=== PATIENT | female | born 1990 | race American Indian/Alaskan Native ===

== ENCOUNTER 2016-06-22 17:22 | Outpatient (CLI) | payer MEDICAID ==
[2016-06-22 17:48] VITALS: BP 108/55
--- NOTE | 2016-06-23 07:51 | Ultrasound Report ---
ULTRASOUND BIOPHYSICAL PROFILE: History: Nonreassuring tracing Technique: Transabdominal ultrasound with Doppler interrogation. 2 - breathing movements 2 - movements 2 - posture and tone 2 - Qualitative amniotic fluid volume 8 - TOTAL SCORE OF POSSIBLE 8 Heart Rate (bpm) 131
--- NOTE | 2016-06-23 07:52 | Ultrasound Report ---
ULTRASOUND OB LIMITED History: well being Technique: Transabdominal ultrasound with Doppler interrogation. Gestation: Single Position: Cephalic Amniotic Fluid: Normal LINDA = 21.0 cm Heart Rate: 133 BPM
== END 2016-06-22 19:36 | disposition home or self-care (01) ==
LOC: TRG 17:22
PROVIDERS: ATTEND Obstetrics & Gynecology
DX: O47.03 False labor before 37 completed weeks of gestation, third trimester (principal); Z3A.35 35 weeks gestation of pregnancy
CPT/HCPCS: 59025; 76815; 76819

== ENCOUNTER 2016-07-08 10:49 | Inpatient (IN) | payer MEDICAID ==
[2016-07-08] MEDS ORDERED: ePHEDrine SULFATE IV PRN ×2 (10:51→14:19)
[2016-07-08] MEDS ORDERED: SUBLIMAZE IV PRN (10:51)
[2016-07-08] MEDS ORDERED: MINERAL OIL PO PRN (10:51)
[2016-07-08] MEDS ORDERED: XYLOCAINE 2% INFILTRATI ONE (10:51)
[2016-07-08] MEDS ORDERED: BRETHINE SUB-Q PRN (10:51)
[2016-07-08] MEDS ORDERED: ZOFRAN IV PRN (10:51)
[2016-07-08] MEDS ORDERED: PITOCin 20 UNIT in NACL 0.9% 1000 ML 998 ML IV SCH (11:00)
[2016-07-08] MEDS ORDERED: LACTATED RINGERS 1,000 ML IV SCH (11:00)
--- NOTE | 2016-07-08 11:05 | History and Physical Report ---
History of Present Illness Date of examination: 07/08/16 (pt presents with SROM this AM; "the color is brown") Date of admission: 07/08/16 10:49 History of present illness: Past History : 6 Term Births: 4 Living Children: 4 Para: 4 Elect. Ab: 2 # 1 Delivery date: 10/2004 Delivery type: Anesthesia type: epidural Delivery location: [place] [facility] Sex: Female weight: 7-14 Comments: denies complications # 2 Delivery date: 04/2007 Weeks Gestation: term Delivery type: Anesthesia type: epidural Delivery location: [place] Sex: Male weight: 7-11 # 3 Delivery date: 05/2008 Weeks Gestation: term Delivery type: Anesthesia type: none Delivery location: [facility] Sex: Female weight: 8-1 # 4 Delivery date: 2002 Weeks Gestation: 8 Delivery type: EAB # 5 Delivery date: 2011 Weeks Gestation: 16 Delivery type: EAB # 6 Delivery date: 03/11/2013 Weeks Gestation: 40 Delivery type: Vaginal Anesthesia type: epidural Delivery location: [facility] Sex: female weight: 8.50 Past Medical History: Reviewed history from 10/21/2012 and no changes required: Negative Past Medical History Past Surgical History: Reviewed history from 10/21/2012 and no changes required: EAB X 2 Past Medical History Abnormal PAP: negative JÚNIOR Exposure: negative Infertility: negative Uterine Anomaly: negative Uterine Surgery (not C/S): negative Other Gynecologic Problems: negative Infection History Hx of STD: trich HIV Risk Eval: low risk Hepatitis B Risk Eval: low risk Personal hx. of genital herpes: yes Partner hx. of genital herpes: no Rash, Viral, or Febrile illness since last LMP? no Varicella/Chicken Pox Status: Immunized TB Risk: no Genetic History Congenital Heart Defect: Mom: no Dad: no Vitor Disease: Mom: no Dad: no Thalassemia Mom: no Dad: no Neural Tube Defect Mom: no Dad: no Down's Syndrome Mom: no Dad: no Paulo-Sachs Mom: no Dad: no Sickle Cell Disease/Trait Mom: no Dad: no Hemophilia Mom: no Dad: no Muscular Dystrophy Mom: no Dad: no Cystic Fibrosis Mom: no Dad: no Robinson Chorea Mom: no Dad: no Mental Retardation Mom: no Dad: no Fragile X Mom: no Dad: no Other Genetic/Chromosomal Disorder Mom: no Dad: no Child w/other defect Mom: no Dad: no Enviromental Exposures Xray Exposure: no Medication, drug, or alcohol use since LMP: no Chemical/Other Exposure: no Exposure to Cat Liter: no Hx of Parvovirus (Fifth Disease): no Occupational Exposure to Children: none Active Medications (reviewed today): DEPO-PROVERA 150 MG/ML IM SUSP (MEDROXYPROGESTERONE ACETATE) 1 inj x every 12 weeks Current Allergies: No known allergies Laboratory Results Date/Time Collected: 05/18/2016 Routine Urinalysis Color: yellow Appearance: cloudy Leukocytes: negative Nitrite: negative Urobilinogen: negative Protein: Negative Blood: negative Ketone: trace (5) Bilirubin: negative Glucose: Negative Urine HCG: positive Review of Systems General Denies fever, chills, sweats, anorexia, fatigue, weakness, malaise, weight loss and sleep disorder. Denies nausea, vomiting, headache, swelling of legs, abdominal pain, vaginal discharge, vaginal bleeding and contractions. Denies vaginal discharge, incontinence, dysuria, hematuria, urinary frequency, amenorrhea, menorrhagia, abnormal vaginal bleeding, pelvic pain, genital sores, decreased libido, painful periods, painful sex, urinary urgency, hot flashes, vaginal dryness, vaginal itching and vaginal odor. CV Denies chest pains, palpitations, syncope, dyspnea on exertion, orthopnea, PND and peripheral edema. Resp Denies cough, dyspnea at rest, excessive sputum, hemoptysis, wheezing and pleurisy. GI Denies nausea, vomiting, diarrhea, constipation, change in bowel habits, abdominal pain, melena, hematochezia, jaundice, gas/bloating, indigestion/ heartburn, dysphagia and odynophagia. Endo Denies cold intolerance, heat intolerance, polydipsia, polyphagia, polyuria and unusual weight change. Breast Denies left breast lump, right breast lump, nipple discharge, bloody discharge from nipple, breast pain, abnormal mammogram and breast enlargement. MS Denies back pain, joint pain, joint swelling, muscle cramps, muscle weakness, stiffness, arthritis, sciatica, restless legs, leg pain at night and leg pain with exertion. Derm Denies rash, itching, dryness and suspicious lesions. Neuro Denies paralysis, paresthesias, headache, seizures, tremors, vertigo, transient blindness, frequent falls, frequent headaches and difficulty walking. Psych Denies depression, anxiety, irritability and mood swings. Eyes Denies blurring, diplopia, irritation, discharge, vision loss, eye pain and photophobia. ENT Denies earache, ear discharge, tinnitus, decreased hearing, nasal congestion, nosebleeds, sore throat and hoarseness. Allergy Denies urticaria, allergic rash, hay fever and recurrent infections. Heme Denies abnormal bruising, bleeding and enlarged lymph nodes. 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/Vagina: No lesions, normal BUS, normal rugae Cervix: No lesions; no cervical motion tenderness Uterus: normal size and position, midline, mobile Fundal Ht: 30 Presentation: vertex FHT: 150s Adnexae: no masses or tenderness Rectovaginal: no masses or tenderness Past History - Obstetrical History Expected Date of Delivery: 07/24/16 Actual Gestation: 37 Week(s) 5 Day(s) : 7 Para: 4 Hx # Term Pregnancies: 4 Number of Living Children: 4 Medications and Allergies Allergies Allergy/AdvReac Type Severity Reaction Status Date / Time No Known Allergies Allergy Verified 03/11/13 00:57 Home Medications Medication Instructions Recorded Confirmed Last Taken Type Ferrous Sulfate [Feosol] 325 mg PO QDAY 06/22/16 06/22/16 06/21/16 11:00 History 1 Vit W-Ca,Fe,FA(<1 mg) 1 each PO DAILY 06/22/16 06/22/16 06/21/16 11:00 History [ Vitamins] 1 Active Meds: Active Medications Ephedrine Sulfate (Ephedrine Sulfate) 10 mg IV Q2M PRN PRN Reason: Hypotension Stop: 07/08/16 10:56 Fentanyl (Sublimaze) 100 mcg IV Q2H PRN PRN Reason: Labor Pain Lactated Ringer's (Lactated Ringers) 1,000 mls @ 125 mls/hr IV DIRECT KAMINI Oxytocin 20 unit/ Sodium (Chloride) 1,000 mls @ 125 mls/hr IV DIRECT KAMINI Oxytocin 30 unit/ Sodium (Chloride) 500 mls @ 4 mls/hr IV Q30MIN KAMINI PRN Reason: Protocol Lidocaine (Xylocaine 2%) 20 ml INFILTRATI ONCE ONE Stop: 07/08/16 10:52 Mineral Oil (Mineral Oil) 30 ml PO QHS PRN PRN Reason: Constipation Ondansetron HCl (Zofran) 4 mg IV Q8H PRN PRN Reason: Nausea And Vomiting Terbutaline Sulfate (Brethine) 0.25 mg SUB-Q ONCE PRN PRN Reason: Hyperstimulation/Hypertonicity Stop: 07/08/16 10:52 - Physical Exam Breasts: Positive: deferred Cardiovascular: Regular rate, Normal S1, Normal S2 Lungs: Positive: Normal air movement Abdomen: Positive: normal appearance, soft, normal bowel sounds. Negative: distention, tenderness Genitourinary (Female): Positive: normal external genitalia, normal perenium Vulva: both: normal Vagina: Positive: normal moisture. Negative: discharge Cervix: Negative: lesion, discharge Uterus: Positive: normal size, normal contour Adnexa: both: normal Anus/Rectum: Positive: normal perianal skin, heme negative. Negative: rectal mass, hemorrhoids Extremities: Positive: edema Deep Tendon Reflex Grade: Normal +2 - Obstetrical FHR: category 1 Uterine Contraction Monitor Mode: External Cervical Dilatation: 2.5 (lightly stained amniotic fluid noted) Cervical Effacement Percentage: 50 station: -3 Uterine Contraction Pattern: Irregular Uterine Tone Measurement Phase: Resting Uterine Contraction Intensity: Mild Results All other labs normal. Laboratory Data-Patient Name: KI RAMIREZ Test Date Result Blood Type 05/25/2016 A Rh 05/25/2016 Positive Antibody Screen negative Rubella 05/25/2016 immune Serology (RPR) 06/22/2016 HBsAg 05/25/2016 Negative Hemoglobin 05/25/2016 8.1 Hematocrit 05/25/2016 27.0 Platelets 05/25/2016 297 [id number] Chlamydia DNA 06/22/2016 Negative GC DNA/Culture 06/22/2016 Urine Culture 05/25/2016 Final report Group B Strep cult 02/04/2013 negative PAP 10/21/2012 Normal, Satisfactory HIV 06/22/2016 AFP/Quad Screen Glucola Test 11/18/2012 90 3hr GTT (Fasting) 1 hr 2 hr 3 hr [facility]-Patient Name:KI RAMIREZ Test Date Result Varicella Ab Sickle Cell 05/25/2016 Negative PPD Fibronectin Cystic Fibrosis Parvovirus TSH Free T4 Hepatitis C 10/21/2012 NON-REACTIVE ALT AST Uric Acid Creatinine 24 hr Urine Protein CEDRIC Assessment and Plan 26yo @ 38 weeks with SROM this AM 0700 light meconium SVE 2-3,50,-3 GBS negative Orders in EMR
[2016-07-08] MEDS ORDERED: PITOCin/NS 30 UNIT/500ML 30,000 MILLIUNITS/500 ML BAG IV ONE (11:47)
[2016-07-08 11:51] LABS: Hematocrit 26.8 % (30.3-42.9); Hemoglobin 8.3 gm/dl (10.1-14.3); Mean Corpuscular HGB Conc 31 % (30-34); Mean Corpuscular Volume 71 fl (79-97); Platelet Count 279 K/mm3 (140-440); Red Blood Count 3.76 M/mm3 (3.65-5.03); White Blood Count 9.9 K/mm3 (4.5-11.0)
[2016-07-08] MEDS ORDERED: FLUARIX QUAD 2016-2017(36 MOS+) IM ONE (11:52)
[2016-07-08] MEDS: PITOCin 30 UNIT in NACL 0.9% 500 ML 497 ML IV SCH ×9 (11:53→16:40)
[2016-07-08 11:54] LABS: Mean Corpuscular Hemoglobin 22 pg (28-32); Red Cell Distribution Width 20.2 % (13.2-15.2)
[2016-07-08] MEDS ORDERED: ePHEDrine SULFATE ONE (14:10)
[2016-07-08] MEDS ORDERED: NARCAN 2 MG/2 ML IV PRN (14:19)
--- NOTE | 2016-07-08 14:19 | Anesthesia Consultation ---
Anesthesia Consult and Med Hx Date of service: 07/08/16 - Airway Anesthetic Teeth Evaluation: Good ROM Head & Neck: Adequate Mental/Hyoid Distance: Adequate Mallampati Class: Class II Intubation Access Assessment: Probably Good - Pulmonary Exam CTA: Yes - Cardiac Exam Cardiac Exam: RRR - Pre-Operative Health Status ASA Pre-Surgery Classification: ASA2 Proposed Anesthetic Plan: Epidural - Pulmonary Hx Asthma: No COPD: No Hx Pneumonia: No - Cardiovascular System Hx Hypertension: No - Central Nervous System Hx Seizures: No Hx Psychiatric Problems: No - Endocrine Hx Renal Disease: No Hx End Stage Renal Disease: No Hx Hypothyroidism: No Hx Hyperthyroidism: No - Hematic Hx Anemia: No Hx Sickle Cell Disease: No - Other Systems Hx Alcohol Use: No
[2016-07-08] MEDS ORDERED: fentaNYL-BUPIV 2 MCG/ML-0.125% 200 MCG/100 ML BAG EPIDURAL SCH (15:00)
--- NOTE | 2016-07-08 15:57 | Progress Note ---
Assessment and Plan epidural very dense LE CTX q3, 50, mod Internal monitors Pit @ 12 mu O2 on via face mask Amnio infusion started. Re-eval as needed anticipate delivery Subjective - Subjective Date of service: 07/08/16 (comfortable with epidural) Interval history: Past History : 6 Term Births: 4 Living Children: 4 Para: 4 Elect. Ab: 2 # 1 Delivery date: 10/2004 Delivery type: Anesthesia type: epidural Delivery location: [place] Sex: Female weight: 7-14 Comments: denies complications # 2 Delivery date: 04/2007 Weeks Gestation: term Delivery type: Anesthesia type: epidural Delivery location: [place] Inf[facility] Sex: Male weight: 7-11 # 3 Delivery date: 05/2008 Weeks Gestation: term Delivery type: Anesthesia type: none Delivery location: [facility] Sex: Female weight: 8-1 # 4 Delivery date: 2002 Weeks Gestation: 8 Delivery type: EAB # 5 Delivery date: 2011 Weeks Gestation: 16 Delivery type: EAB # 6 Delivery date: 03/11/2013 Weeks Gestation: 40 Delivery type: Vaginal Anesthesia type: epidural Delivery location: [facility] Sex: female weight: 8.50 Past Medical History: Reviewed history from 10/21/2012 and no changes required: Negative Past Medical History Past Surgical History: Reviewed history from 10/21/2012 and no changes required: EAB X 2 Past Medical History Abnormal PAP: negative JÚNIOR Exposure: negative Infertility: negative Uterine Anomaly: negative Uterine Surgery (not C/S): negative Other Gynecologic Problems: negative Infection History Hx of STD: trich HIV Risk Eval: low risk Hepatitis B Risk Eval: low risk Personal hx. of genital herpes: yes Partner hx. of genital herpes: no Rash, Viral, or Febrile illness since last LMP? no Varicella/Chicken Pox Status: Immunized TB Risk: no Genetic History Congenital Heart Defect: Mom: no Dad: no Vitor Disease: Mom: no Dad: no Thalassemia Mom: no Dad: no Neural Tube Defect Mom: no Dad: no Down's Syndrome Mom: no Dad: no Paulo-Sachs Mom: no Dad: no Sickle Cell Disease/Trait Mom: no Dad: no Hemophilia Mom: no Dad: no Muscular Dystrophy Mom: no Dad: no Cystic Fibrosis Mom: no Dad: no [place] Chorea Mom: no Dad: no Mental Retardation Mom: no Dad: no Fragile X Mom: no Dad: no Other Genetic/Chromosomal Disorder Mom: no Dad: no Child w/other defect Mom: no Dad: no Enviromental Exposures Xray Exposure: no Medication, drug, or alcohol use since LMP: no Chemical/Other Exposure: no Exposure to Cat Liter: no Hx of Parvovirus (Fifth Disease): no Occupational Exposure to Children: none Active Medications (reviewed today): DEPO-PROVERA 150 MG/ML IM SUSP (MEDROXYPROGESTERONE ACETATE) 1 inj x every 12 weeks Current Allergies: No known allergies Laboratory Results Date/Time Collected: 05/18/2016 Routine Urinalysis Color: yellow Appearance: cloudy Leukocytes: negative Nitrite: negative Urobilinogen: negative Protein: Negative Blood: negative Ketone: trace (5) Bilirubin: negative Glucose: Negative Urine HCG: positive Review of Systems General Denies fever, chills, sweats, anorexia, fatigue, weakness, malaise, weight loss and sleep disorder. Denies nausea, vomiting, headache, swelling of legs, abdominal pain, vaginal discharge, vaginal bleeding and contractions. Denies vaginal discharge, incontinence, dysuria, hematuria, urinary frequency, amenorrhea, menorrhagia, abnormal vaginal bleeding, pelvic pain, genital sores, decreased libido, painful periods, painful sex, urinary urgency, hot flashes, vaginal dryness, vaginal itching and vaginal odor. CV Denies chest pains, palpitations, syncope, dyspnea on exertion, orthopnea, PND and peripheral edema. Resp Denies cough, dyspnea at rest, excessive sputum, hemoptysis, wheezing and pleurisy. GI Denies nausea, vomiting, diarrhea, constipation, change in bowel habits, abdominal pain, melena, hematochezia, jaundice, gas/bloating, indigestion/ heartburn, dysphagia and odynophagia. Endo Denies cold intolerance, heat intolerance, polydipsia, polyphagia, polyuria and unusual weight change. Breast Denies left breast lump, right breast lump, nipple discharge, bloody discharge from nipple, breast pain, abnormal mammogram and breast enlargement. MS Denies back pain, joint pain, joint swelling, muscle cramps, muscle weakness, stiffness, arthritis, sciatica, restless legs, leg pain at night and leg pain with exertion. Derm Denies rash, itching, dryness and suspicious lesions. Neuro Denies paralysis, paresthesias, headache, seizures, tremors, vertigo, transient blindness, frequent falls, frequent headaches and difficulty walking. Psych Denies depression, anxiety, irritability and mood swings. Eyes Denies blurring, diplopia, irritation, discharge, vision loss, eye pain and photophobia. ENT Denies earache, ear discharge, tinnitus, decreased hearing, nasal congestion, nosebleeds, sore throat and hoarseness. Allergy Denies urticaria, allergic rash, hay fever and recurrent infections. Heme Denies abnormal bruising, bleeding and enlarged lymph nodes. 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 Vulva/Vagina: No lesions, normal BUS, normal rugae Cervix: No lesions; no cervical motion tenderness Uterus: normal size and position, midline, mobile Fundal Ht: 30 Presentation: vertex FHT: 150s Adnexae: no masses or tenderness Rectovaginal: no masses or tenderness Patient reports: movement normal Objective - Vital Signs Vital Signs: Vital Signs - 12hr 07/08/16 07/08/16 07/08/16 11:09 11:10 11:15 Temperature Pulse Rate 100 H 79 79 Pulse Rate [ From Monitor] Respiratory Rate Blood Pressure 127/72 Blood Pressure [Left Arm] O2 Sat by Pulse 100 100 Oximetry 07/08/16 07/08/16 07/08/16 11:18 11:20 11:25 Temperature 98.2 F Pulse Rate 97 H 86 Pulse Rate [ 85 From Monitor] Respiratory 18 Rate Blood Pressure Blood Pressure 127/72 [Left Arm] O2 Sat by Pulse 99 100 100 Oximetry 07/08/16 07/08/16 07/08/16 11:30 11:35 11:40 Temperature Pulse Rate 91 H 71 75 Pulse Rate [ From Monitor] Respiratory Rate Blood Pressure Blood Pressure [Left Arm] O2 Sat by Pulse 99 100 100 Oximetry 07/08/16 07/08/16 07/08/16 11:45 11:50 11:55 Temperature Pulse Rate 77 79 80 Pulse Rate [ From Monitor] Respiratory Rate Blood Pressure Blood Pressure [Left Arm] O2 Sat by Pulse 99 99 100 Oximetry 07/08/16 07/08/16 07/08/16 12:00 12:05 12:10 Temperature Pulse Rate 91 H 84 78 Pulse Rate [ From Monitor] Respiratory Rate Blood Pressure Blood Pressure [Left Arm] O2 Sat by Pulse 100 100 100 Oximetry 07/08/16 07/08/16 07/08/16 12:15 12:20 12:25 Temperature Pulse Rate 81 77 79 Pulse Rate [ From Monitor] Respiratory Rate Blood Pressure Blood Pressure [Left Arm] O2 Sat by Pulse 100 99 99 Oximetry 07/08/16 07/08/16 07/08/16 12:30 12:35 12:40 Temperature Pulse Rate 87 96 H 80 Pulse Rate [ From Monitor] Respiratory Rate Blood Pressure Blood Pressure [Left Arm] O2 Sat by Pulse 100 100 100 Oximetry 07/08/16 07/08/16 07/08/16 12:45 12:50 12:56 Temperature Pulse Rate 75 92 H 75 Pulse Rate [ From Monitor] Respiratory Rate Blood Pressure Blood Pressure [Left Arm] O2 Sat by Pulse 100 100 100 Oximetry 07/08/16 07/08/16 07/08/16 13:00 13:06 13:10 Temperature Pulse Rate 78 74 82 Pulse Rate [ From Monitor] Respiratory Rate Blood Pressure Blood Pressure [Left Arm] O2 Sat by Pulse 100 100 99 Oximetry 07/08/16 07/08/16 07/08/16 13:23 14:18 14:21 Temperature 98.2 F Pulse Rate 74 66 Pulse Rate [ From Monitor] Respiratory Rate Blood Pressure 137/75 Blood Pressure [Left Arm] O2 Sat by Pulse 100 Oximetry 07/08/16 07/08/16 07/08/16 14:22 14:23 14:24 Temperature Pulse Rate 75 112 H 86 Pulse Rate [ From Monitor] Respiratory Rate Blood Pressure 141/77 137/80 Blood Pressure [Left Arm] O2 Sat by Pulse 100 Oximetry 07/08/16 07/08/16 07/08/16 14:26 14:28 14:29 Temperature Pulse Rate 62 64 64 Pulse Rate [ From Monitor] Respiratory Rate Blood Pressure 131/78 130/76 Blood Pressure [Left Arm] O2 Sat by Pulse 100 Oximetry 07/08/16 07/08/16 07/08/16 14:30 14:32 14:34 Temperature Pulse Rate 81 65 79 Pulse Rate [ From Monitor] Respiratory Rate Blood Pressure 141/65 134/70 Blood Pressure [Left Arm] O2 Sat by Pulse 100 Oximetry 07/08/16 07/08/16 07/08/16 14:38 14:43 14:44 Temperature Pulse Rate 78 71 67 Pulse Rate [ From Monitor] Respiratory Rate Blood Pressure 132/64 Blood Pressure [Left Arm] O2 Sat by Pulse 100 100 Oximetry 07/08/16 07/08/16 07/08/16 14:48 14:49 14:54 Temperature Pulse Rate 75 95 H 84 Pulse Rate [ From Monitor] Respiratory Rate Blood Pressure 139/65 Blood Pressure [Left Arm] O2 Sat by Pulse 100 100 Oximetry 07/08/16 07/08/16 07/08/16 14:59 15:03 15:04 Temperature Pulse Rate 84 77 85 Pulse Rate [ From Monitor] Respiratory Rate Blood Pressure 133/64 Blood Pressure [Left Arm] O2 Sat by Pulse 100 100 Oximetry 07/08/16 07/08/16 07/08/16 15:09 15:14 15:19 Temperature Pulse Rate 92 H 81 79 Pulse Rate [ From Monitor] Respiratory Rate Blood Pressure 132/61 Blood Pressure [Left Arm] O2 Sat by Pulse 100 100 100 Oximetry 07/08/16 07/08/16 07/08/16 15:23 15:29 15:34 Temperature Pulse Rate 78 79 68 Pulse Rate [ From Monitor] Respiratory Rate Blood Pressure 126/59 Blood Pressure [Left Arm] O2 Sat by Pulse 100 100 100 Oximetry 07/08/16 07/08/16 07/08/16 15:39 15:44 15:48 Temperature Pulse Rate 70 69 77 Pulse Rate [ From Monitor] Respiratory Rate Blood Pressure 133/73 Blood Pressure [Left Arm] O2 Sat by Pulse 100 100 Oximetry 07/08/16 15:49 Temperature Pulse Rate 77 Pulse Rate [ From Monitor] Respiratory Rate Blood Pressure Blood Pressure [Left Arm] O2 Sat by Pulse 100 Oximetry - Exam Breasts: deferred Cardiovascular: Regular rate Lungs: Normal air movement Abdomen: Present: normal appearance, soft. Absent: distention, tenderness Uterus: Present: normal FHR: auscultation normal, category 2 (deep variable with ctx; amnioinfusion; freq position chges) Uterine Contraction Monitor Mode: Internal Cervical Dilatation: 6 (ISE/IUPC placed) Cervical Effacement Percentage: 70 (large amt of fluid) station: -1 Uterine Contraction Pattern: Regular Uterine Contraction Intensity: Moderate - Labs Labs: Abnormal Labs 07/08/16 11:30 Hgb 8.3 L Hct 26.8 L MCV 71 L MCH 22 L RDW 20.2 H Laboratory Results - last 24 hr 07/08/16 07/08/16 11:30 11:36 WBC 9.9 RBC 3.76 Hgb 8.3 L Hct 26.8 L MCV 71 L MCH 22 L MCHC 31 RDW 20.2 H Plt Count 279 Blood Type A POSITIVE Antibody Screen Negative
[2016-07-08] MEDS ORDERED: NACL 0.9% 1000 ML 1,000 ML VG SCH (16:00)
--- NOTE | 2016-07-08 17:19 | Procedure Note ---
OB Delivery Note - Delivery Date of Delivery: 07/08/16 Publishing Director: RASHIDA ESPINOSA Estimated blood loss: 200cc - Vaginal Delivery presentation: vertex Delivery position: OA Intrapartum events: hydramnios Delivery induction: none Delivery augmentation: pitocin Delivery monitor: internal FHT, internal uterine Route of delivery: Delivery placenta: spontaneous Delivery cord: 3 umbilical vessels Episiotomy: none Delivery laceration: none Anesthesia: epidural Delivery comments: live born male over intact perineum Baby placed skin to skin on mom. Baby slow to respond to drying and stim RT called to eval baby. Placenta and membrane del complete and intact, 3 vessel cord Placenta to pathology due to poly. 7/9 , EBL 200, Wgt 7-1. Pit IVFs. Mom and baby remain LDR - Infant A at 1 minute: 7 at 5 minutes: 9 Gender: Male (wgt 7-1)
[2016-07-08] MEDS ORDERED: MILK OF MAGNESIA PO PRN (17:20)
[2016-07-08] MEDS ORDERED: TYLENOL PO PRN (17:20)
[2016-07-08] MEDS ORDERED: PHENERGAN PO PRN (17:20)
[2016-07-08] MEDS ORDERED: DERMOPLAST TP PRN (17:20)
[2016-07-08] MEDS ORDERED: DULCOLAX PR PRN (17:20)
[2016-07-08] MEDS ORDERED: BENADRYL PO PRN (17:20)
[2016-07-08] MEDS ORDERED: LANSINOH TP PRN (17:20)
[2016-07-08] MEDS ORDERED: TUCKS PAD TP PRN (17:20)
[2016-07-08] MEDS ORDERED: PITOCin/NS 20 UNIT/1000ML DRIP 20,000 MILLIUNITS/1,000 ML BAG IV ONE (17:55)
[2016-07-08] MEDS ORDERED: SODIUM CHLORIDE FLUSH SYRINGE 10 ML IV NR (18:00)
[2016-07-08] MEDS: NORCO 5/325 PO PRN (23:10)
[2016-07-09] MEDS: NORCO 5/325 PO PRN ×3 (03:31→21:55)
--- NOTE | 2016-07-09 04:00 | Progress Note ---
Assessment and Plan - Patient Problems (1) Spontaneous vaginal delivery Onset Date: ~07/08/16 Current Visit: Yes Status: Acute Plan to address problem: pt states she is not getting good relief with medications Encouraged her to take Motrin on schedule and to ask for [place] when needed Voiced agreement. Also encouraged pt to go see her son in NICU. BP 140/60 VSS FF below umb Lochia mod perineum intact H&H pending this AM. Doing well s/p vag del P: continue pathway d/c tomorrow Subjective - Subjective Date of service: 07/09/16 (pt c/o back pain) Principal diagnosis: male 07/08/16 Interval history: Past History : 6 Term Births: 4 Living Children: 4 Para: 4 Elect. Ab: 2 # 1 Delivery date: 10/2004 Delivery type: Anesthesia type: epidural Delivery location: [facility] Sex: Female weight: 7-14 Comments: denies complications # 2 Delivery date: 04/2007 Weeks Gestation: term Delivery type: Anesthesia type: epidural Delivery location: [place] Sex: Male weight: 7-11 # 3 Delivery date: 05/2008 Weeks Gestation: term Delivery type: Anesthesia type: none Delivery location: [facility] Infant Sex: Female weight: 8-1 # 4 Delivery date: 2002 Weeks Gestation: 8 Delivery type: EAB # 5 Delivery date: 2011 Weeks Gestation: 16 Delivery type: EAB # 6 Delivery date: 03/11/2013 Weeks Gestation: 40 Delivery type: Vaginal Anesthesia type: epidural Delivery location: [facility] Sex: female weight: 8.50 Past Medical History: Reviewed history from 10/21/2012 and no changes required: Negative Past Medical History Past Surgical History: Reviewed history from 10/21/2012 and no changes required: EAB X 2 Past Medical History Abnormal PAP: negative JÚNIOR Exposure: negative Infertility: negative Uterine Anomaly: negative Uterine Surgery (not C/S): negative Other Gynecologic Problems: negative Infection History Hx of STD: trich HIV Risk Eval: low risk Hepatitis B Risk Eval: low risk Personal hx. of genital herpes: yes Partner hx. of genital herpes: no Rash, Viral, or Febrile illness since last LMP? no Varicella/Chicken Pox Status: Immunized TB Risk: no Genetic History Congenital Heart Defect: Mom: no Dad: no Vitor Disease: Mom: no Dad: no Thalassemia Mom: no Dad: no Neural Tube Defect Mom: no Dad: no Down's Syndrome Mom: no Dad: no Paulo-Sachs Mom: no Dad: no Sickle Cell Disease/Trait Mom: no Dad: no Hemophilia Mom: no Dad: no Muscular Dystrophy Mom: no Dad: no Cystic Fibrosis Mom: no Dad: no [place] Chorea Mom: no Dad: no Mental Retardation Mom: no Dad: no Fragile X Mom: no Dad: no Other Genetic/Chromosomal Disorder Mom: no Dad: no Child w/other defect Mom: no Dad: no Enviromental Exposures Xray Exposure: no Medication, drug, or alcohol use since LMP: no Chemical/Other Exposure: no Exposure to Cat Liter: no Hx of Parvovirus (Fifth Disease): no Occupational Exposure to Children: none Active Medications (reviewed today): DEPO-PROVERA 150 MG/ML IM SUSP (MEDROXYPROGESTERONE ACETATE) 1 inj x every 12 weeks Current Allergies: No known allergies Laboratory Results Date/Time Collected: 05/18/2016 Routine Urinalysis Color: yellow Appearance: cloudy Leukocytes: negative Nitrite: negative Urobilinogen: negative Protein: Negative Blood: negative Ketone: trace (5) Bilirubin: negative Glucose: Negative Urine HCG: positive Review of Systems General Denies fever, chills, sweats, anorexia, fatigue, weakness, malaise, weight loss and sleep disorder. Denies nausea, vomiting, headache, swelling of legs, abdominal pain, vaginal discharge, vaginal bleeding and contractions. Denies vaginal discharge, incontinence, dysuria, hematuria, urinary frequency, amenorrhea, menorrhagia, abnormal vaginal bleeding, pelvic pain, genital sores, decreased libido, painful periods, painful sex, urinary urgency, hot flashes, vaginal dryness, vaginal itching and vaginal odor. CV Denies chest pains, palpitations, syncope, dyspnea on exertion, orthopnea, PND and peripheral edema. Resp Denies cough, dyspnea at rest, excessive sputum, hemoptysis, wheezing and pleurisy. GI Denies nausea, vomiting, diarrhea, constipation, change in bowel habits, abdominal pain, melena, hematochezia, jaundice, gas/bloating, indigestion/ heartburn, dysphagia and odynophagia. Endo Denies cold intolerance, heat intolerance, polydipsia, polyphagia, polyuria and unusual weight change. Breast Denies left breast lump, right breast lump, nipple discharge, bloody discharge from nipple, breast pain, abnormal mammogram and breast enlargement. MS Denies back pain, joint pain, joint swelling, muscle cramps, muscle weakness, stiffness, arthritis, sciatica, restless legs, leg pain at night and leg pain with exertion. Derm Denies rash, itching, dryness and suspicious lesions. Neuro Denies paralysis, paresthesias, headache, seizures, tremors, vertigo, transient blindness, frequent falls, frequent headaches and difficulty walking. Psych Denies depression, anxiety, irritability and mood swings. Eyes Denies blurring, diplopia, irritation, discharge, vision loss, eye pain and photophobia. ENT Denies earache, ear discharge, tinnitus, decreased hearing, nasal congestion, nosebleeds, sore throat and hoarseness. Allergy Denies urticaria, allergic rash, hay fever and recurrent infections. Heme Denies abnormal bruising, bleeding and enlarged lymph nodes. 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, or edema [employer] Exams Vulva/Vagina: No lesions, normal BUS, normal rugae Cervix: No lesions; no cervical motion tenderness Uterus: normal size and position, midline, mobile Fundal Ht: 30 Presentation: vertex FHT: 150s Adnexae: no masses or tenderness Rectovaginal: no masses or tenderness Patient reports: appetite normal, voiding normally, ambulating normally [place]: in NICU Objective - Vital Signs Latest vital signs: Vital Signs Temp Pulse Pulse Resp BP BP Pulse Ox 07/09/16 00:00 98.4 F 66 20 137/62 07/08/16 20:40 98.6 F 87 20 140/68 07/08/16 18:50 98.7 F 76 20 139/67 07/08/16 18:08 140/65 07/08/16 18:06 75 140/65 07/08/16 18:03 98 H 149/76 07/08/16 17:48 101 H 145/81 07/08/16 17:33 78 126/69 07/08/16 17:31 98.9 F 122/80 07/08/16 17:18 109 H 126/83 07/08/16 17:03 82 122/80 07/08/16 16:49 90 144/76 100 07/08/16 16:44 73 100 07/08/16 16:39 74 100 07/08/16 16:34 78 100 07/08/16 16:33 74 133/63 07/08/16 16:29 70 100 07/08/16 16:24 75 100 07/08/16 16:19 74 100 07/08/16 16:18 74 138/65 07/08/16 16:13 69 100 07/08/16 16:10 98.1 F 134/63 07/08/16 16:08 66 100 07/08/16 16:04 76 100 07/08/16 16:03 71 134/63 07/08/16 15:58 70 100 07/08/16 15:54 68 100 07/08/16 15:49 77 100 07/08/16 15:48 77 133/73 07/08/16 15:44 69 100 07/08/16 15:39 70 100 07/08/16 15:34 68 126/59 100 07/08/16 15:29 79 100 07/08/16 15:23 78 100 07/08/16 15:19 79 132/61 100 07/08/16 15:14 81 100 07/08/16 15:09 92 H 100 07/08/16 15:04 85 100 07/08/16 15:03 77 133/64 07/08/16 14:59 84 100 07/08/16 14:54 84 100 07/08/16 14:49 95 H 100 07/08/16 14:48 75 139/65 07/08/16 14:44 67 100 07/08/16 14:43 71 132/64 07/08/16 14:38 78 100 07/08/16 14:34 79 100 07/08/16 14:32 65 134/70 04/01/17 14:30 81 141/65 07/08/16 14:29 64 100 07/08/16 14:28 64 130/76 07/08/16 14:26 62 131/78 07/08/16 14:24 86 137/80 07/08/16 14:23 112 H 100 07/08/16 14:22 75 141/77 07/08/16 14:21 66 137/75 07/08/16 14:18 74 100 07/08/16 13:23 98.2 F 07/08/16 13:10 82 99 07/08/16 13:06 74 100 07/08/16 13:00 78 100 07/08/16 12:56 75 100 07/08/16 12:50 92 H 100 07/08/16 12:45 75 100 07/08/16 12:40 80 100 07/08/16 12:35 96 H 100 07/08/16 12:30 87 100 07/08/16 12:25 79 99 07/08/16 12:20 77 99 07/08/16 12:15 81 100 07/08/16 12:10 78 100 07/08/16 12:05 84 100 07/08/16 12:00 91 H 100 07/08/16 11:55 80 100 07/08/16 11:50 79 99 07/08/16 11:45 77 99 07/08/16 11:40 75 100 07/08/16 11:35 71 100 07/08/16 11:30 91 H 99 07/08/16 11:25 86 100 07/08/16 11:20 97 H 100 07/08/16 11:18 98.2 F 85 18 127/72 99 07/08/16 11:15 79 100 07/08/16 11:10 79 100 07/08/16 11:09 100 H 127/72 Intake and Output 07/08/16 07/08/16 07/09/16 14:59 22:59 06:59 Intake Total 1500 2740 240 Output Total 1800 800 Balance 1500 940 -560 Intake: IV 1500 2500 PITOCin 30 UNIT In NaCl 0 1500 2500 .9% 500 ml 497 ml @ 4 mls /hr IV Q30MIN [facility] Rx#: [id number] Oral 240 240 Output: Urine 1800 800 Indwelling Catheter 1000 Void 800 800 Other: Total, Intake Amount 240 240 Total, Output Amount 800 800 # Voids Void 3 Weight 210 lb Estimated Blood Loss 200 Patient Weight 07/09/16 06:59 Weight 210 lb - Exam Breasts: Present: normal Cardiovascular: Present: Regular rate Lungs: Present: Normal air movement Abdomen: Present: normal appearance, soft Uterus: Present: normal, fundal height below umbilicus Extremities: Present: normal Deep Tendon Reflex Grade: Normal +2 Incision: Present: normal - Labs Labs: Abnormal lab results 07/08/16 Range/Units 11:30 Hgb 8.3 L (10.1-14.3) gm/dl Hct 26.8 L (30.3-42.9) % MCV 71 L (79-97) fl MCH 22 L (28-32) pg RDW 20.2 H (13.2-15.2) %
[2016-07-09 08:23] LABS: Hematocrit 26.1 % (30.3-42.9); Hemoglobin 7.8 gm/dl (10.1-14.3)
[2016-07-09] MEDS ORDERED: PRENATAL VITAMIN PO SCH (10:00)
[2016-07-09] MEDS: COLACE PO SCH ×3 (10:10→23:26)
--- NOTE | 2016-07-09 11:36 | Progress Note ---
Subjective Date of service: 07/09/16 Principal diagnosis: male 07/08/16 Interval history: Epidural removed earlier. Pt is doing well. Objective - Constitutional Vitals: Vital Signs - 12hr 07/09/16 07/09/16 07/09/16 00:00 04:45 08:45 Temperature 98.4 F 98.1 F 97.7 F Pulse Rate [ 66 63 82 From Monitor] Respiratory 20 20 20 Rate Blood Pressure 137/62 123/76 118/56 [Left Arm] - Labs CBC & Chem 7: 07/09/16 07:58 Labs: Abnormal lab results 07/08/16 07/09/16 Range/Units 11:30 07:58 Hgb 8.3 L 7.8 L (10.1-14.3) gm/dl Hct 26.8 L 26.1 L (30.3-42.9) % MCV 71 L (79-97) fl MCH 22 L (28-32) pg RDW 20.2 H (13.2-15.2) %
[2016-07-09] MEDS: MOTRIN PO SCH ×3 (12:39→22:35)
[2016-07-09] MEDS: FEOSOL PO SCH ×2 (12:41→23:21)
[2016-07-09] MEDS ORDERED: BOOSTRIX IM ONE (17:20)
[2016-07-09] MEDS ORDERED: M-M-R II VACCINE SUB-Q ONE (17:20)
[2016-07-10] MEDS: NORCO 5/325 PO PRN (03:52)
--- NOTE | 2016-07-10 09:16 | Discharge Summary ---
Providers - Providers Date of Admission: 07/08/16 10:49 Date of discharge: 07/10/16 (pt agrees with d/c ) Attending physician: SANDRINE MIN Primary care physician: DEPUTY [employer]ONER INVESTIGATOR Hospitalization Reason for admission: active labor, IUP at term Delivery: Episiotomy: none Laceration: none Incision: normal Other procedures: none complications: none Discharge diagnosis: IUP at term delivered baby: male Hospital course: uncomplicated vaginal delivery Pt w/o complaint VSS FF below umb Lochia small Perineum intact H&H 7.8/26.1 drop r/t blood loss from delivery. Pt is asymptomatic RX po iron @ d/c. Doing well s/p vag delivery P: d/c today with instructions RTO 4 weeks for PP care. Circ in 1 week Pt will call for appt. Condition at discharge: Good Disposition: DISCHARGED TO HOME OR SELFCARE - Discharge Diagnoses (1) Spontaneous vaginal delivery Status: Acute Comment: RTO 4 weeks for PP care Plan - Discharge Medications Prescriptions: Docusate Sodium [Colace] 100 mg PO BID PRN #60 capsule PRN Reason: Constipation Ferrous Sulfate [Feosol 325 MG tab] 325 mg PO BID #60 tablet Ibuprofen [Motrin 800 MG tab] 800 mg PO TID PRN #30 tablet PRN Reason: Pain Lidocain2.5%/Prilocai2.5% [Emla] 5 gm TP PRN #1 tube - Provider Discharge Summary Activity: routine, no sex for 6 weeks, no heavy lifting 4 weeks, no strenuous exercise Diet: routine Instructions: routine Additional instructions: [] Smoking cessation referral if applicable(refer to patient education folder for contact #) [] Refer to [facility] Booklet Call your doctor immediately for: * Fever > 100.5 * Heavy vaginal bleeding ( >1 pad per hour) * Severe persistent headache * Shortness of breath * Reddened, hot, painful area to leg or breast * Drainage or odor from incision. * Keep incision clean and dry at all times and follow doctor's instructions regarding bathing/showering - Follow up plan Follow up: PRIMARY CARE, [Primary Care Provider] - 7 Days RASHIDA ESPINOSA CNM [Advanced Practice Nurse] - 7 Days (Congratulations! Please call [phone] to schedule your appointment in 4 weeks. Your son's circumcision in 1 week. Bring the EMLA cream with you to his appointment. Take medications as prescribed. Call with concerns.)
[2016-07-10] MEDS ORDERED: FLUARIX QUAD 2016-2017(36 MOS+) IM ONE (12:00)
[2016-07-10 12:53] VITALS: BP 114/80
== END 2016-07-10 12:30 | disposition home or self-care (01) | DRG 775 ==
LOC: LD 10:49 → OB 18:37
PROVIDERS: ADMIT Obstetrics & Gynecology; ATTEND Obstetrics & Gynecology
PROC: 10E0XZZ Delivery of Products of Conception, External Approach (ICD-10-PCS; principal; 2016-07-08)
PROC: 3E0R3CZ (ICD-10-PCS; 2016-07-08)
PROC: 00HU33Z Insertion of Infusion Device into Spinal Canal, Percutaneous Approach (ICD-10-PCS; 2016-07-08)
PROC: 3E0234Z Introduction of Serum, Toxoid and Vaccine into Muscle, Percutaneous Approach (ICD-10-PCS; 2016-07-10)
DX: O40.3XX0 Polyhydramnios, third trimester, not applicable or unspecified (principal); O42.92 Full-term premature rupture of membranes, unspecified as to length of time between rupture and onset of labor; Z37.0 Single live birth; Z3A.38 38 weeks gestation of pregnancy; Z23 Encounter for immunization
CPT/HCPCS: 36415; 85014; 85018; 85027; 86592; 86850; 86900; 86901; 88307; 90471; 90686; 90715; 99211; 99406; G0463; J2590; J3010; J7030; J7120